=== PATIENT | female | born 1985 | race Caucasian/White ===

== ENCOUNTER → 2020-04-29 | Outpatient (CLI) | payer OTHER ==
--- NOTE | 2020-04-29 17:44 | RAD ---
Exam: Ultrasound OB less than 14 weeks Indication: Threatened Technique: Real-time grayscale and color Doppler images of the pelvis were obtained by the department information systems director. Comparisons: None FINDINGS: Uterus measures 9.5 x 4.8 x 5.1 cm. Within the endometrium there is a small gestational sac with a sm all internal yolk sac. There is a pole which measures 3 mm with heart measured at 130 bpm . Right ovary measures 2.6 x 1.7 x 3.4 cm. Left ovary measures 4.1 x 2.2 x 3.0 cm. There is a cyst noted within the left ovary which measures 2. 0 cm. Vascular flow identified within the ovaries bilaterally. IMPRESSION: 1. Single live intrauterine gestation of 5 weeks 6 days by LMP with concordant ultrasound. 2. Dedicated survey is recommended at 18-20 weeks gestation. Electronically signed by: Colin Isaac MD (04/29/2020 5:42 PM) AGUSTIN
== END ==
LOC: US 17:03
PROVIDERS: ATTEND Physician Assistant
DX: O20.0 Threatened abortion (principal); O34.81 Maternal care for other abnormalities of pelvic organs, first trimester; N83.202 Unspecified ovarian cyst, left side; Z3A.01 Less than 8 weeks gestation of pregnancy
CPT/HCPCS: 36415; 76801; 84702